=== PATIENT | male | born 1985 | race Caucasian/White ===

== ENCOUNTER 2019-05-19 08:57 | Observation (INO) | payer BC ==
[2019-05-19] MEDS ORDERED: Ondansetron ODT 4 MG TAB ONE (09:21)
[2019-05-19] MEDS ORDERED: Ondansetron PF 4 MG/2 ML Vial ONE (09:42)
[2019-05-19] MEDS ORDERED: Morphine 4 MG/ML VIAL ONE ×2 (09:42→12:29)
[2019-05-19 09:58] LABS: Hemoglobin 17.4 g/dL (14.0-18.0); Mean Corpuscular HGB CONC 34.1 g/dL (32.0-36.0); Mean Corpuscular Hemoglobin 30.1 pg (27.0-31.0); Mean Corpuscular Volume 88.2 fL (78.0-98.0); Mean Platelet Volume 8.7 fL (7.4-10.4); Platelet Count 296 thou/uL (130-400); RBC Distribution Width 11.3 % (11.5-14.5); Red Blood Cell (RBC) Count 5.77 mill/uL (4.70-6.10); White Blood Cell (WBC) Count 23.1 thou/uL (4.8-10.8)
[2019-05-19 10:14] LABS: ALT (SGPT) 24 U/L (8-55); AST (SGOT) 16 U/L (5-34); Alkaline Phosphatase 94 U/L (40-150); Anion Gap 18 mmol/L (10-20); BUN (Urea Nitrogen) 16 mg/dL (8.9-20.6); Bilirubin, Total 1.2 mg/dL (0.2-1.2); Calc. Creatinine Clearance 0 mL/min (70-130); Calcium 10.5 mg/dL (7.8-10.44); Carbon Dioxide 22 mmol/L (22-29); Chloride 101 mmol/L (98-107); Estimated GFR-MDRD 77; Globulin 2.7 g/dL (2.4-3.5); Glucose 184 mg/dL (70-105); Lipase 17 U/L (8-78); Potassium 3.8 mmol/L (3.5-5.1); Protein, Total 7.7 g/dL (6.0-8.3); Sodium 137 mmol/L (136-145)
[2019-05-19 10:19] LABS: Band 23 % (5-11); Lymphocytes 7 % (21-51); MDiff Complete? YES; Metamyelocyte 2 % (0-0); Monocytes 2 % (0-10); Neutrophil 66 % (42-75)
[2019-05-19] MEDS ORDERED: Piperacillin/Tazobactam 4.5 GM VIAL ONE (10:54)
[2019-05-19] MEDS ORDERED: Sodium Chloride 0.9% 0 ML ONE (10:54)
[2019-05-19 11:07] LABS: Bacteria/HPF None Seen HPF (None Seen); Bilirubin Negative (Negative); Blood, Urine Negative (Negative); Clarity Clear (Clear); Glucose, Urine (Dipstick) Normal (Negative); Leukocyte 25 Leu/uL (Negative); Nitrite Negative (Negative); Protein, Urine (Dipstick) 100 mg/dL (Neg-Trace); RBC/HPF 0-3 HPF (0-3); Squamous Epithelial 0-3 HPF (0-3); Urobilinogen 3 mg/dL (Less than 2); WBC/HPF 0-3 HPF (0-3)
--- NOTE | 2019-05-19 11:49 | CT ---
CT Abdomen Pelvis W Con History: Abdominal pain Comparison: None. Findings: Lung bases are clear. No pericardial effusion. There is diastases recti with likely some ef fusions of the small bowel to the anterior abdominal wall. Liver, gallbladder, spleen are unremarkable as well as the pancreas and adrenal glands. No hydronephr osis. There is suture and the mid to distal small bowel sequelae of prior resection. At the area suture is an intraluminal somewhat linear hypodensity measuring fat attenuation with a bulbous end. In total this intraluminal object measures approximate 5 cm in length. Linear component measures approximate 5 mm in transverse dimension and the bulbous end measures approximately 15 mm. There is abnormal mesenteric fluid. There is also some atrophy of the left lateral paraspinous muscul ature. No acute osseous abnormality. Impression: 1. Low-grade mid small bowel obstruction from what appears to be an intraluminal hypodensity which me asures 5 cm in length with majority of the component measuring 5 mm in diameter with the bulbous tip measuring 15 mm. This intraluminal hypodensity occurs near the suture from prior small bowel rese ction. Surgical consultation advised. 2. Small volume free mesenteric fluid. 3. Abdominal radiograph may be helpful to delineate the shape of this intraluminal object. Code CR
--- NOTE | 2019-05-19 13:11 | RAD ---
XR Abdomen 1 View/KUB History: Abdominal pain Comparison: CT same day Findings: There is contrast within the large bowel. Impression: Contrast within the colon. No high-grade obstruction.
[2019-05-19] MEDS ORDERED: Ondansetron PF 4 MG/2 ML Vial IVP PRN (13:26)
[2019-05-19] MEDS ORDERED: Dextrose 50% Abboject 50 ML SYRINGE SLOW IVP PRN (13:26)
[2019-05-19] MEDS ORDERED: Dextrose 5% in Water 1,000 ML IV PRN (13:26)
[2019-05-19] MEDS ORDERED: Promethazine HCl 25 MG/ML VIAL IM PRN (13:26)
[2019-05-19] MEDS ORDERED: Acetaminophen 500 MG TAB PO PRN (13:30)
[2019-05-19 13:57] LABS: Hemoglobin 15.9 g/dL (14.0-18.0); Mean Corpuscular HGB CONC 35.2 g/dL (32.0-36.0); Mean Corpuscular Hemoglobin 31.8 pg (27.0-31.0); Mean Corpuscular Volume 90.3 fL (78.0-98.0); Mean Platelet Volume 8.5 fL (7.4-10.4); Platelet Count 253 thou/uL (130-400); RBC Distribution Width 11.2 % (11.5-14.5); Red Blood Cell (RBC) Count 4.99 mill/uL (4.70-6.10); White Blood Cell (WBC) Count 17.8 thou/uL (4.8-10.8)
[2019-05-19 14:15] LABS: Phosphorus 3.8 mg/dL (2.3-4.7)
[2019-05-19 14:23] LABS: Band 42 % (5-11); Lymphocytes 2 % (21-51); MDiff Complete? YES; Monocytes 4 % (0-10); Neutrophil 52 % (42-75); Ovalocytes SLIGHT = 2-5 cells (100X) (0-1/hpf); Platelet Morphology Comment Appears Adequate; Polychromasia SLIGHT = 2-3 cells (100X) (0-2/hpf); Tear Drops SLIGHT = 2-5 cells (100X) (0-1/hpf)
[2019-05-19] MEDS ORDERED: Iopamidol 370 76% 50 ML VIAL FS ONE (15:59)
[2019-05-19] MEDS ORDERED: ISOVUE-370 76%-LOCM 1 ML ONE (15:59)
[2019-05-19] MEDS: Sodium Chloride 0.9% 1,000 ML IV SCH (17:52)
--- NOTE | 2019-05-19 20:18 | HP ---
HISTORY OF PRESENT ILLNESS: Mr. Tello is a 33-year-old man with a previous history of multiple abdominal operations. The patient presented to the emergency department with insidious onset of severe abdominal pain, which he rated at 9/10. Pain was described as sharp, occasionally crampy without any radiation. Last bowel movement was yesterday and normal, although the patient had another bowel movement shortly before CT scanning earlier today. He does not recall the last time he passed flatus. The patient endorses multiple bouts of nonbilious emesis since onset of pain. He denies any fevers or chills. PAST MEDICAL HISTORY: Significant for multiple small bowel obstructions as well as childhood appendicitis. PAST SURGICAL HISTORY: Pertinent for open appendectomy at age 14 followed by bowel resection a few days after that operation with primary anastomosis. 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 SOCIAL HISTORY: He admits to occasional intake of ethanol in moderate amount. He denies any cigarette smoking or any illicit drug abuse. PREHOSPITALIZATION MEDICATIONS: None. ALLERGIES: THE PATIENT DENIES ANY KNOWN DRUG ALLERGIES. REVIEW OF SYSTEMS: Ten-point review of systems is essentially unremarkable except as stated in past medical history and chief complaint. PHYSICAL EXAMINATION: GENERAL: This reveals a 33-year-old normally-developed man, who is otherwise coherent, interactive, and appears stated age. The patient is alert and oriented x3, appears to be in no acute distress at time of my evaluation. VITAL SIGNS: Include blood pressure 128/68, pulse 78, respiratory rate 16, temperature 98.2 degrees Fahrenheit, oxygen saturation is 96% on room air. HEENT: Reveals normocephalic and atraumatic. Pupils are equally round and reactive to light and accommodation. HEART: Reveals regular rate and rhythm. No murmurs or gallops auscultated. LUNGS: Clear to auscultation bilaterally. His breathing is regular and nonlabored. ABDOMEN: Soft and moderately obese, but nontender to palpation. He clearly has no rebound tenderness present. Liver and spleen are nonpalpable below costal margin. He has a nasogastric tube in place, which returns low-volume nonbilious gastric effluent. EXTREMITIES: Reveal 2+ radial and pedal pulses bilaterally. No ankle edema is present. NEUROLOGIC: Reveals no focal deficits present. LABORATORY DATA: Laboratory findings today include a CBC with 23,100 white blood cells, hemoglobin and hematocrit 17.4 and 50.9 respectively, platelet count is 296,000. Metabolic profile; sodium 137, potassium is 3.8, chloride is 101, bicarb is 22, BUN 16, creatinine is 1.11, glucose 184. Lactic acid is 1.8. Serum lipase is normal at 17. AST and ALT are normal at 16 and 24 respectively. I have personally reviewed the CT scan of the abdomen and pelvis, which is remarkable for a few dilated, fluid and air filled small bowel loops with no transition zone. I repeated abdominal x-ray, which was obtained approximately [address] scan, and this clearly shows contrast within the colon and rectum. IMPRESSION: Resolved acute partial small bowel obstruction versus gastroenteritis. PLAN: Nasogastric tube will be discontinued, and clear liquid diet initiated. There is clearly no acute surgical indication for this patient at this time. We will place him on observation. Consider discharge within the next 24 hours if no return of abdominal pain, nausea, or vomiting. Above findings and plan discussed with the patient, who indicates understanding of information given. I have answered his questions. Job ID: [id number]
--- NOTE | 2019-05-20 01:25 | PRG ---
DATE OF SERVICE: 05/19/2019 SUBJECTIVE: The patient was seen today during evening rounds. He was sitting up in bed with no signs of acute distress. He reported pain was well controlled and he had just occasional sharp abdominal pains that resolve on their own. He has also been tolerating a clear liquid diet. Reports loose stools since he took oral contrast today in the emergency department and is voiding without difficulties. OBJECTIVE: VITAL SIGNS: The patient is afebrile and vital signs are stable. GENERAL: Well-appearing young male, sitting up in bed with no signs of acute distress. PULMONARY: Equal chest rise and fall. Clear breath sounds bilaterally. No signs of acute respiratory distress. CARDIAC: Regular rate and rhythm. No murmurs, gallops, or rubs. GI: Abdomen is soft, nontender, nondistended. EXTREMITIES: 2+ pulses in all extremities. No significant swelling noted. NEURO: GCS is 15. ASSESSMENT: Resolved acute partial small bowel obstruction versus gastroenteritis. PLAN: We will continue a current diet and pain regimen as previously prescribed from the day team. We will continue to monitor closely. The patient symptoms seem to have greatly improved since he arrived in the emergency department. Job ID: [id number]
[2019-05-20] MEDS: Sodium Chloride 0.9% 1,000 ML IV SCH ×2 (01:57→07:31)
[2019-05-20 06:11] LABS: Band 8 % (5-11); Eosinophils 5 % (0-10); Lymphocytes 20 % (21-51); MDiff Complete? YES; Mean Corpuscular HGB CONC 33.7 g/dL (32.0-36.0); Mean Corpuscular Hemoglobin 30.6 pg (27.0-31.0); Mean Corpuscular Volume 90.6 fL (78.0-98.0); Mean Platelet Volume 9.2 fL (7.4-10.4); Monocytes 12 % (0-10); Neutrophil 50 % (42-75); Platelet Count 205 thou/uL (130-400); RBC Distribution Width 11.2 % (11.5-14.5); Reactive Lymphocytes 5 % (0-10); Red Blood Cell (RBC) Count 4.57 mill/uL (4.70-6.10); White Blood Cell (WBC) Count 7.3 thou/uL (4.8-10.8)
[2019-05-20 06:20] LABS: Anion Gap 10 mmol/L (10-20); BUN (Urea Nitrogen) 10 mg/dL (8.9-20.6); Calc. Creatinine Clearance 170 mL/min (70-130); Calcium 8.2 mg/dL (7.8-10.44); Carbon Dioxide 25 mmol/L (22-29); Chloride 106 mmol/L (98-107); Estimated GFR-MDRD 90; Glucose 96 mg/dL (70-105); Sodium 137 mmol/L (136-145)
--- NOTE | 2019-05-20 11:07 | DIS ---
DATE OF ADMISSION: 05/19/2019 DATE OF DISCHARGE: 05/20/2019 DISCHARGING PHYSICIAN: Fahad Kirk DO ADMITTING DIAGNOSIS: Partial small bowel obstruction, now resolved. DISCHARGE DIAGNOSIS: Partial small bowel obstruction, now resolved. HISTORY AND HOSPITAL COURSE: A 33-year-old man with a history of multiple abdominal operations, presented to the emergency department yesterday with acute severe abdominal pain. Clinical and radiographic examination were consistent with acute partial small-bowel obstruction, which was treated with temporary bowel rest with nasogastric tube decompression. The patient underwent a small bowel follow-through, which revealed no complete obstruction. The nasogastric tube was discontinued. The patient was placed on clear liquid diet yesterday. Overnight, he denies any problems. He is passing flatus, having bowel movement. He has no abdominal pain this morning. Diet was advanced to general. DISCHARGE INSTRUCTIONS: The patient will be discharged home today with the following instructions, 1. He is to follow up with me in the [facility] as needed. 2. He is to increase his activity ad kaylee. 3. Diet is unrestricted. He may resume all pre-hospital medications as prescribed by his primary care physician. 4. The patient indicates understanding of information given. I have answered his questions. Job ID: [id number]
[2019-05-20 12:16] VITALS: BP 119/72; TEMP 98.3
== END 2019-05-20 12:54 | disposition home or self-care (01) ==
LOC: ERS 08:57 → SURG A 16:34
PROVIDERS: ADMIT Surgery; ATTEND Surgery
DX: K56.600 Partial intestinal obstruction, unspecified as to cause (principal); Z90.89 Acquired absence of other organs
CPT/HCPCS: 36415; 74018; 74177; 80048; 80053; 81003; 81015; 83605; 83690; 83735; 84100; 85007; 85025; 85027; 87040; 87086; 96361; 96365; 96367; 96375; 96376; G0378; J2270; J2405; J2543; J3490; Q0162; Q9966; Q9967

== ENCOUNTER 2019-12-04 19:11 | Inpatient (IN) | payer BC ==
[2019-12-04] MEDS ORDERED: Morphine 2 MG/ML SYRINGE SLOW IVP PRN (20:30)
[2019-12-04] MEDS ORDERED: Ondansetron PF 4 MG/2 ML Vial SLOW IVP PRN (20:30)
[2019-12-04] MEDS: D5 1/2 NS w/20 mEq KCL 1,000 ML IV SCH (21:30)
[2019-12-04 22:36] VITALS: BMI 35.2
[2019-12-04] MEDS ORDERED: Chloraseptic Spray 180 ml Bottle PO PRN (22:52)
[2019-12-05] MEDS: Morphine 4 MG/ML VIAL SLOW IVP PRN ×4 (04:10→21:31)
[2019-12-05] MEDS: D5 1/2 NS w/20 mEq KCL 1,000 ML IV SCH ×3 (04:13→17:43)
[2019-12-05 05:32] LABS: Anion Gap 10 mmol/L (10-20); BUN (Urea Nitrogen) 13 mg/dL (8.9-20.6); Calc. Creatinine Clearance 183 mL/min (70-130); Calcium 8.3 mg/dL (7.8-10.44); Carbon Dioxide 27 mmol/L (22-29); Chloride 108 mmol/L (98-107); Estimated GFR-MDRD Greater than 90; Glucose 110 mg/dL (70-105); Potassium 3.9 mmol/L (3.5-5.1); Sodium 141 mmol/L (136-145)
[2019-12-05 06:46] LABS: Band 25 % (5-11); Eosinophils 2 % (0-10); Hemoglobin 14.6 g/dL (14.0-18.0); Lymphocytes 19 % (21-51); MDiff Complete? YES; Mean Corpuscular Hemoglobin 32.5 pg (27.0-31.0); Mean Corpuscular Volume 92.9 fL (78.0-98.0); Mean Platelet Volume 8.7 fL (7.4-10.4); Monocytes 8 % (0-10); Neutrophil 46 % (42-75); Platelet Count 212 thou/uL (130-400); RBC Distribution Width 11.2 % (11.5-14.5); White Blood Cell (WBC) Count 7.9 thou/uL (4.8-10.8)
--- NOTE | 2019-12-05 07:37 | RAD ---
CHEST 1 VIEW: Date: 12/05/2019 INDICATION: History of small bowel obstruction. COMPARISON: Prior exam dated 05/19/19. FINDINGS: There are gas-filled loops of small bowel within the central abdomen that are mildly distended. There is gas present within the colon and rectum. There is contrast within the bladder which may be relate d to prior IV contrast administration. Gastric catheter is seen within the region of the gastric card ia. Surgical clips are seen right of midline. No acute osseous abnormality is evident. IMPRESSION: Mildly prominent gas-filled loops of small bowel within the central abdomen. Upright abdominal radiog raph may be helpful for additional characterization. POS: BH
[2019-12-05] MEDS ORDERED: Sodium Chloride 0.9% 1,000 ML IV SCH (08:15)
[2019-12-05] MEDS: Pantoprazole 40 MG VIAL IVP SCH (08:44)
--- NOTE | 2019-12-05 08:49 | HP ---
CHIEF COMPLAINT: Abdominal pain, nausea, vomiting. HISTORY OF PRESENT ILLNESS: The patient is a 34-year-old male, who has had multiple abdominal surgeries. He was most recently treated with small bowel obstruction nonsurgically by Dr. Kirk in May of 2019. He says he is in his usual state of health until Thursday when he developed severe abdominal pain, nausea, and vomiting. His last bowel movement was Thursday. He passed flatus last Thursday. PAST MEDICAL HISTORY: Otherwise, healthy. PAST SURGICAL HISTORY: At age 14, he had an open appendectomy complicated by some type of leak that required a bowel resection. Then 3 years ago, he had a laparotomy and small bowel obstruction that had to be repeated a month later. He had an open abdomen with wound VAC. MEDICATIONS: Include ibuprofen. ALLERGIES: NO KNOWN DRUG ALLERGIES. FAMILY HISTORY: Heart disease. SOCIAL HISTORY: He is . He is a student services advisor. No tobacco. Social alcohol. PHYSICAL EXAMINATION: VITAL SIGNS: Temperature 97.6, pulse 75, and blood pressure 145/81. HEENT: He has an NG tube in place, it is putting out minimal fluid. He has had 150 out. LUNGS: Clear. HEART: Regular rate and rhythm. ABDOMEN: Soft and nondistended. He has a very hypertrophic midline scar from xiphoid to pubis. I do not feel any hernias. He is mildly tender. No peritoneal signs. EXTREMITIES: Unremarkable. LABORATORY DATA: White count 7.9, H and H of 14 and 41, and platelet count of 212. Electrolytes are fine. Elevated glucose at 110. He had a KUB this morning that shows some mildly prominent gas-filled loops. There is gas in the colon and rectum. ASSESSMENT: Recurrent small bowel obstruction. PLAN: IV hydration, NG suction, small bowel follow-through. Job ID: [id number]
[2019-12-05] MEDS ORDERED: FLU VACC QS2019-20(6MOS UP)/PF 60 MCG/0.5 ML SYRINGE IM ONE (09:00)
--- NOTE | 2019-12-05 11:01 | RAD ---
Exam: Small bowel series: HISTORY: Small bowel obstruction prior appendectomy and small bowel resection. COMPARISON: KUB 12/05/2019 FINDINGS: NG tube in place. Extensive postsurgical changes in the right lower quadrant. Abnormally dilated smal l bowel with some scattered gas and fecal material in the colon demonstrated on the activities attendant film. Gastrografin contrast media was introduced per NG tube. Imaging out to one half hours is performed. C ontrast media did progress through some abnormally dilated small bowel entering the colon by one and half hours. IMPRESSION: Some abnormally dilated small bowel loops evidence for ileus or partial small bowel obstruction. Cont rast media does progress through the abnormally dilated small bowel entering the colon by one and half hours.
[2019-12-05] MEDS ORDERED: MD-Gastroview 120 ML BOT ONE (14:49)
[2019-12-06] MEDS: D5 1/2 NS w/20 mEq KCL 1,000 ML IV SCH ×3 (02:32→18:42)
[2019-12-06] MEDS: Morphine 4 MG/ML VIAL SLOW IVP PRN (02:35)
--- NOTE | 2019-12-06 08:25 | PRG ---
DATE OF SERVICE: 12/06/2019 SUBJECTIVE: The patient says he feels a lot better. No nausea or vomiting. He has had multiple bowel movements. Small bowel follow-through showed no obstruction. OBJECTIVE: VITAL SIGNS: On examination, temperature 99, pulse 90, and blood pressure 143/85. HEENT: NG has some coffee-ground material coming out, a total of 1000 out. ASSESSMENT: Doing well. PLAN: Discontinue NG. Ambulate. Job ID: [id number]
[2019-12-06] MEDS: Pantoprazole 40 MG VIAL IVP SCH (08:32)
[2019-12-06 08:39] LABS: #Eosinphils 0.1 thou/uL (0.0-0.7); #Lymphocytes 1.2 thou/uL (1.20-3.40); #Monocytes 1.2 thou/uL (0.11-0.59); #Neutrophils 7.3 thou/uL (1.40-6.50); %Basophils 0.4 % (0.0-1.0); %Eosinophils 0.6 % (0.0-10.0); %Lymphocytes 12.4 % (21.0-51.0); %Monocytes 12.3 % (0.0-10.0); %Neutrophils 74.4 % (42.0-75.0); Hemoglobin 13.9 g/dL (14.0-18.0); Mean Corpuscular HGB CONC 34.2 g/dL (32.0-36.0); Mean Corpuscular Hemoglobin 31.9 pg (27.0-31.0); Mean Corpuscular Volume 93.1 fL (78.0-98.0); Mean Platelet Volume 8.4 fL (7.4-10.4); Platelet Count 193 thou/uL (130-400); RBC Distribution Width 10.9 % (11.5-14.5); Red Blood Cell (RBC) Count 4.36 mill/uL (4.70-6.10); White Blood Cell (WBC) Count 9.8 thou/uL (4.8-10.8)
[2019-12-07] MEDS: D5 1/2 NS w/20 mEq KCL 1,000 ML IV SCH ×2 (03:12→14:35)
[2019-12-07] MEDS: Pantoprazole 40 MG VIAL IVP SCH (09:41)
--- NOTE | 2019-12-07 11:26 | DIS ---
DATE OF ADMISSION: 12/04/2019 DATE OF DISCHARGE: 12/07/2019 DISCHARGE DIAGNOSIS: Small bowel obstruction. PROCEDURES DURING ADMISSION: NG suction, IV hydration, and small bowel follow-through. HOSPITAL COURSE: The patient was admitted, given IV fluids, NG suction, small bowel follow-through went to the colon without obstruction. He started to have bowel movements. He is now tolerating a diet. His bowels are functioning well. He is discharged home, afebrile. No pain. No nausea. On his usual medications. He will follow up with his primary care physician in 2 weeks. Job ID: [id number]
[2019-12-07 11:31] VITALS: BP 129/85; TEMP 98.4
== END 2019-12-07 15:25 | disposition home or self-care (01) | DRG 390 ==
LOC: SURG B 20:24
PROVIDERS: ADMIT Surgery; ATTEND Surgery
DX: K56.609 Unspecified intestinal obstruction, unspecified as to partial versus complete obstruction (principal); Z82.49 Family history of ischemic heart disease and other diseases of the circulatory system; Z90.49 Acquired absence of other specified parts of digestive tract
CPT/HCPCS: 36415; 74018; 74250; 80048; 85025; 90471; 90686; C9113; G0008; J2270; Q9963